=== PATIENT | female | born 1980 | race Caucasian/White ===

== ENCOUNTER 2019-02-26 11:15 | Emergency (ER) | payer BC, MEDICAID ==
[~2019-02-26] VITALS: Ht 157.5 cm; Wt 84.4 kg
[~2019-02-26 11:15] MED LIST: ALBU-136 IH; PRED10TA5 PO
[2019-02-26 11:26] VITALS: BP 123/79
[2019-02-26] MEDS ORDERED: PRON INH (11:32)
[2019-02-26] MEDS ORDERED: ALBU0.0912 IH (11:32)
--- NOTE | 2019-02-26 11:32 | NUR ---
TO BED 3 WITH STEADY GAIT
[2019-02-26] MEDS ORDERED: DEXAMETHASONE 10 MG/ML VIAL IM ONE (11:35)
[2019-02-26] MEDS ORDERED: ALBUTEROL SULFATE/IPRATROPIU 3 ML SOL IH ONE (11:35)
[2019-02-26] MEDS ORDERED: hydrOXYzine HCL 25 MG TAB PO ONE (11:35)
--- NOTE | 2019-02-26 11:35 | NUR ---
BIB . AAO X4 C/O SOB, PRODUCTIVE COUGH WITH YELLOW SPUTUM, BACK PAIN AND CHEST WALL PAIN EXACERBATED BY COUGH. USED NEBULIZER TX AT 2400 AND INHALER AT 0700 WITHOUT RELIEF. +INSP WHEEZING BILATERAL UPPER LUNGS UPON AUSCULTATION. O2 SAT 98% RA, ABLE TO SPEAK IN FULL SENTENCES. SWELLING NOTED TO RIGHT UPPER EYE LID. 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 ER TO EVALUATE PT.
--- NOTE | 2019-02-26 11:48 | NUR ---
RESPIRATORY THERAPIST AT BEDSIDE FOR BREATHING TX ORDERED
[2019-02-26 12:54] LABS: APPEARANCE,URINE SL CLOUDY (CLEAR); BILIRUBIN,URINE NEGATIVE (NEGATIVE); BLOOD, URINE 1+ (NEGATIVE); COLOR,URINE YELLOW (YELLOW); LEUKOCYTE ESTERASE ,URINE NEGATIVE (NEGATIVE); NITRITE, URINE NEGATIVE (NEGATIVE); PH,URINE 5.5 (5.0-9.0); UGLUCOSE NEGATIVE (NEGATIVE)
[2019-02-26 13:22] LABS: RBC,URINE 0-5 /HPF (0-5); WBC,URINE 0-5 /HPF (0-5)
[2019-02-26] MEDS ORDERED: cefTRIAXone 1,000 MG in LIDOCAINE 1% ***ER ONLY *** 2.1 ML IM ONE (13:30)
[2019-02-26 13:39] LABS: BARBITURATE, URINE NEGATIVE ng/ml (NEG <=200); BENZODIAZEPINE, URINE NEGATIVE ng/mL (NEG <=200); CANNABINOID, URINE NEGATIVE ng/mL (NEG <=50); COCAINE, URINE NEGATIVE ng/mL (NEG <=300); OPIATE, URINE NEGATIVE ng/mL (NEG <=2000); PHENCYCLIDINE SCREEN,URINE NEGATIVE ng/mL (NEG <=25)
[2019-02-26] MEDS ORDERED: cefTRIAXone 1,000 MG VIAL ONE (14:01)
[2019-02-26] MEDS ORDERED: LIDOCAINE MPF 1% - 5 mL VIAL 5 ML ONE (14:02)
[2019-02-26 14:17] VITALS: BP 117/75
--- NOTE | 2019-02-26 14:17 | NUR ---
Patient discharged with v/s stable. Written and verbal after care instructions given and explained. Patient alert, oriented and verbalized understanding of instructions. Ambulatory with steady gait. All questions addressed prior to discharge. ID band removed. Patient advised to follow up with PMD. Rx of Azithromycin, Prednisone and Albuterol given. Patient educated on indication of medication including possible reaction and side effects. Opportunity to ask questions provided and answered.
== END 2019-02-26 14:17 | disposition home or self-care (01) ==
LOC: MED 11:15
DX: J45.901 Unspecified asthma with (acute) exacerbation (principal); J32.9 Chronic sinusitis, unspecified; J02.9 Acute pharyngitis, unspecified; Z79.899 Other long term (current) drug therapy; Z88.5 Allergy status to narcotic agent
CPT/HCPCS: 80305; 81001; 81025; 94640; 94760; 96372; 99284; J0696; J1100; J2001; J7620

== ENCOUNTER 2019-03-22 16:08 | Emergency (ER) | payer MEDICAID ==
[~2019-03-22] VITALS: Ht 160 cm; Wt 88.2 kg
[~2019-03-22 16:08] MED LIST changes: +ALBU0.0912 IH; +PRON INH
[2019-03-22 16:14] VITALS: BP 144/80
--- NOTE | 2019-03-22 16:27 | NUR ---
URINE CUP HANDED TO PT FOR SAMPLE
[2019-03-22] MEDS ORDERED: KETOROLAC 60 MG/2 ML VIAL IM ONE (16:55)
--- NOTE | 2019-03-22 17:12 | NUR ---
PT PRESENTS TO ED FOR EVALUATION OF HEADACHE X5 DAYS. PT AAO X4, GCS 15, ABLE TO SPEAK WITH FULL COMPLETE SENTENFES. PUPILS PERRLA 3/3 MM. NOTED RT EYE SWOLLEN WITH ERYTHEMA. RESPIRATIONS EVEN AND UNLABORED, BL LUNG CLEAR. AMBULATORY WITH STEADY GAIT. VSS, NO ACUTE DISTRESS AT THIS TIME. WILL CONTINUE TO MONITOR
[2019-03-22 18:37] VITALS: BP 128/72
--- NOTE | 2019-03-22 18:38 | NUR ---
Patient discharged with v/s stable. Written and verbal after care instructions given and explained. Patient alert, oriented and verbalized understanding of instructions. Ambulatory with steady gait. All questions addressed prior to discharge. ID band removed. Patient advised to follow up with PMD. Rx of Motrin, [place] and zofran given. Patient educated on indication of medication including possible reaction and side effects. Opportunity to ask questions provided and answered.
== END 2019-03-22 18:38 | disposition home or self-care (01) ==
LOC: MED 16:08
DX: R51 Headache (principal); J45.909 Unspecified asthma, uncomplicated; Z79.899 Other long term (current) drug therapy; Z88.5 Allergy status to narcotic agent; Z98.890 Other specified postprocedural states
CPT/HCPCS: 81002; 81025; 96372; 99283; J1885

== ENCOUNTER 2019-06-24 10:15 | Emergency (ER) | payer BC, MEDICAID ==
[~2019-06-24] VITALS: Ht 165.1 cm; Wt 84.4 kg
[2019-06-24 10:20] VITALS: BP 139/94
--- NOTE | 2019-06-24 10:20 | NUR ---
PATIENT AMBULATED TO BED 3.
--- NOTE | 2019-06-24 10:40 | NUR ---
C/O HEADACHE SINCE MONDAY, WORSENING AT NIGHT. PT COMPLAINS SHE CANNOT SLEEP AT NIGHT. PT STATES SHE WAS SEEN HERE [place] FOR SAME S/SX GIVEN MOTRIN AND NORCO BUT HAS NOT TAKEN NORCO AT HOME. PT HAS SWELLING TO RIGHT EYE THAT PT STATES IS AN ON GOING ISSUE AND SEEING SPECIALIST FOR. rates pain 8/10. 2mm brisk perrla. denies any head injury or truama. vss. allergies: morphine HX MIGRAINES, IGG, ASTHMA
--- NOTE | 2019-06-24 10:47 | NUR ---
pt taken to ct via wheelchair.
--- NOTE | 2019-06-24 10:58 | NUR ---
pt returned to ct via wheelchair.
[2019-06-24] MEDS: KETOROLAC 30 MG/ML VIAL IM ONE (11:03)
--- NOTE | 2019-06-24 11:22 | NUR ---
reeval pt pain after medical billing associate: pt rates pain 03/16. prev was 04/16. md ellis aware.
[2019-06-24 11:39] VITALS: BP 139/94
--- NOTE | 2019-06-24 11:41 | NUR ---
Patient discharged with v/s stable. Written and verbal after care instructions given and explained. Patient alert, oriented and verbalized understanding of instructions. Ambulatory with steady gait. All questions addressed prior to discharge. ID band removed. Patient advised to follow up with PMD. Rx of prednisone, and naprosyn given. Patient educated on indication of medication including possible reaction and side effects. Opportunity to ask questions provided and answered.
== END 2019-06-24 11:41 | disposition home or self-care (01) ==
LOC: MED 10:15
DX: R51 Headache (principal); H57.11 Ocular pain, right eye; R11.0 Nausea; J45.909 Unspecified asthma, uncomplicated; Z98.890 Other specified postprocedural states; Z79.899 Other long term (current) drug therapy; Z88.5 Allergy status to narcotic agent
CPT/HCPCS: 70450; 81002; 81025; 96372; 99284; J1885

== ENCOUNTER 2019-09-13 11:47 | Emergency (ER) | payer SELFPAY ==
[~2019-09-13] VITALS: Ht 160 cm; Wt 86.6 kg
[~2019-09-13 11:47] MED LIST changes: -ALBU0.0912 IH; -PRON INH
[2019-09-13 12:23] VITALS: BP 136/58
--- NOTE | 2019-09-13 13:54 | NUR ---
Patient ambulated to bed 6. RN evaluating patient at bedside.
[2019-09-13] MEDS ORDERED: ALBUTEROL SULFATE/IPRATROPIU 3 ML SOL IH ONE (14:35)
[2019-09-13] MEDS ORDERED: methylPREDNISolone SS 125 MG in WATER STERILE 2 ML IV ONE (14:35)
[2019-09-13] MEDS ORDERED: MAG SULF 2000 MG/WATER PREMIX 50 ML IV ONE (14:35)
--- NOTE | 2019-09-13 14:40 | NUR ---
38 y/o F presents to ER c/o right eye pain and swelling and headache. Pain level 8/10, throbbing pressure pain. 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 Per pt she sees double vision, blurry vision, with watery and itchy in right eye. Pt took Naproxyn at midnight with relief. Pt also c/o chest tightness. HOB elevated, bed in lowest position, bed rail up x1. Allergies: Morphine Med Hx: Asthma, and IGG Disease
--- NOTE | 2019-09-13 14:45 | NUR ---
Breathing treatment administered by respiratory therapist at bedside.
[2019-09-13] MEDS ORDERED: methylPREDNISolone SS 125 MG/2 ML VIAL ONE (14:50)
[2019-09-13] MEDS ORDERED: WATER STERILE 10 ML MC ONE (14:50)
--- NOTE | 2019-09-13 15:07 | NUR ---
Xray at bedside
[2019-09-13 16:16] VITALS: BP 136/58
--- NOTE | 2019-09-13 16:16 | NUR ---
Patient discharged by Dr. Murphy with v/s stable. Written and verbal after care instructions given and explained. Patient alert, oriented and verbalized understanding of instructions. Ambulatory with steady gait. All questions addressed prior to discharge. ID band removed. Patient advised to follow up with PMD. Rx of Prednison 20mg was given. Patient educated on indication of medication including possible reaction and side effects. Opportunity to ask questions provided and answered.
== END 2019-09-13 16:16 | disposition home or self-care (01) ==
LOC: MED 11:47
DX: D80.3 Selective deficiency of immunoglobulin G [IgG] subclasses (principal); J45.909 Unspecified asthma, uncomplicated; H05.20 Unspecified exophthalmos; Z79.899 Other long term (current) drug therapy; Z88.5 Allergy status to narcotic agent
CPT/HCPCS: 71045; 94640; 96365; 96375; 99283; J2930; J3475; J7620; Q0092

== ENCOUNTER 2020-01-19 14:03 | Emergency (ER) | payer MEDICAID ==
[~2020-01-19] VITALS: Ht 172.7 cm; Wt 81.6 kg
[2020-01-19 14:30] VITALS: BP 118/63
--- NOTE | 2020-01-19 14:41 | NUR ---
39 Y/O FEMALE BIB SELF S/O RIGHT EYE SWELLING AND PAIN. PATIENT STATES THIS IS A CHRONIC CONDITIION AND RELATES IT TO HER 'IGG CONDITION', THIS EPISODE IN PARTICULAR BEGAN ON MONDAY. EYE SWELLING IS CAUSING DOUBLE VISION, OCCIPITAL HEADACHE, AND SORE THROAT. PT STATES SHE TOOK A MOTRIN THIS MORNING AT 10, BUT PAIN IS STILL 8/10. RIGHT EYE IS VISIBLY PROTRUDING AND SWELLED. RESP EVEN AND UNLABORED VSS. ALLERGIES: MORPHINE
[2020-01-19] MEDS ORDERED: KETOROLAC 60 MG/2 ML VIAL IM ONE (14:55)
[2020-01-19] MEDS ORDERED: methylPREDNISolone SS 125 MG in WATER STERILE 2 ML IM ONE (14:55)
[2020-01-19] MEDS ORDERED: WATER STERILE 10 ML MC ONE (14:55)
[2020-01-19] MEDS ORDERED: methylPREDNISolone SS 125 MG/2 ML VIAL ONE (14:55)
--- NOTE | 2020-01-19 15:24 | NUR ---
Patient discharged with v/s stable. Written and verbal after care instructions given and explained. Patient alert, oriented and verbalized understanding of instructions. Ambulatory with steady gait. All questions addressed prior to discharge. ID band removed. Patient advised to follow up with PMD. Rx of MEDROL, IPRATROPIUM, NAPROXEN given. Patient educated on indication of medication including possible reaction and side effects. Opportunity to ask questions provided and answered.
[2020-01-19 15:25] VITALS: BP 118/63
== END 2020-01-19 15:24 | disposition home or self-care (01) ==
LOC: MED 14:03
DX: H10.11 Acute atopic conjunctivitis, right eye (principal); J45.909 Unspecified asthma, uncomplicated; Z79.899 Other long term (current) drug therapy; Z88.5 Allergy status to narcotic agent
CPT/HCPCS: 96372; 99284; J1885; J2930

== ENCOUNTER 2020-03-06 14:25 | Emergency (ER) | payer MEDICAID ==
[~2020-03-06] VITALS: Ht 160 cm; Wt 91.4 kg
[2020-03-06 14:29] VITALS: BP 143/59
--- NOTE | 2020-03-06 14:35 | NUR ---
PT C/O CHRONIC RIGHT EYE INFLAMATION WITH FLARE-UP 3 DAYS AGO. PT REPORTS HX OF PREVIOUS EPISODES. PT WAS SEEN IN [place] FOR CONTINUITY OF CARE. 6/10 THROBBING PAIN RADIATING TO RT EAR AT THIS TIME. PT PRESENTS WITH INFLAMMED AND BULGED RIGHT EYE WITH DOUBLE VISION. VSS, EUPNIC, A/OX4.
[2020-03-06] MEDS ORDERED: methylPREDNISolone SS 125 MG in WATER STERILE 2 ML IM ONE (14:50)
[2020-03-06] MEDS ORDERED: WATER STERILE 0 ML MC ONE (15:01)
[2020-03-06] MEDS ORDERED: methylPREDNISolone SS 125 MG/2 ML VIAL ONE (15:01)
[2020-03-06 15:10] VITALS: BP 128/51
== END 2020-03-06 15:10 | disposition home or self-care (01) ==
LOC: MED 14:25
DX: H05.221 Edema of right orbit (principal); H10.11 Acute atopic conjunctivitis, right eye; J45.909 Unspecified asthma, uncomplicated; Z79.899 Other long term (current) drug therapy; Z88.5 Allergy status to narcotic agent; Z98.890 Other specified postprocedural states
CPT/HCPCS: 96372; 99283; J2930

== ENCOUNTER 2020-05-22 11:52 | Emergency (ER) | payer MEDICAID ==
[~2020-05-22] VITALS: Ht 160 cm; Wt 92.1 kg
--- NOTE | 2020-05-22 11:56 | NUR ---
Patient ambulated to bed 12. RN is evaluating the patient at bedside.
[2020-05-22 11:57] VITALS: BP 133/74
--- NOTE | 2020-05-22 12:04 | NUR ---
Dr. Chandler is evaluating the patient at bedside.
[2020-05-22] MEDS ORDERED: TOMOMETER 1 DEV DEV MC ONE (12:05)
[2020-05-22] MEDS ORDERED: TETRACAINE HCL/PF 0.5% OPTH 4 ML BTL ONE (12:06)
[2020-05-22] MEDS ORDERED: TETRACAINE HCL/PF 0.5% OPTH 4 ML BTL OP ONE (12:15)
--- NOTE | 2020-05-22 12:18 | NUR ---
39/F c/o right-sided headache and right eye swelling/bulging x 3 days due to inflammatory disease, has occurred in exact presentation in the past. Pt has always been given IM steriod inj, pain med, and tapered steriod dose for discharge med, which works to decreased the swelling/inflammation/pain. No decreased in vision. Pt nad. medhx: IGG deficiency Addendum: 05/22/20 at 1229 by DAYO swelling developing over the past week and pain developing over the past 3 days
[2020-05-22] MEDS ORDERED: methylPREDNISolone SS 125 MG/2 ML VIAL IM STA (12:23)
[2020-05-22] MEDS ORDERED: KETOROLAC 30 MG/ML VIAL IM ONE (12:25)
--- NOTE | 2020-05-22 12:28 | NUR ---
Arpita sanabria in [facility] - 05/22/20 at 1229 by DAYO swelling developing over the past week and pain developing over the past 3 days
[2020-05-22 12:57] VITALS: BP 133/74
== END 2020-05-22 12:57 | disposition home or self-care (01) ==
LOC: MED 11:52
DX: H02.843 Edema of right eye, unspecified eyelid (principal); D80.3 Selective deficiency of immunoglobulin G [IgG] subclasses; J45.909 Unspecified asthma, uncomplicated
CPT/HCPCS: 96372; 99284; J1885; J2930

== ENCOUNTER 2020-07-03 12:47 | Emergency (ER) | payer MEDICAID ==
[~2020-07-03] VITALS: Ht 160 cm; Wt 93.0 kg
[2020-07-03 12:50] VITALS: BP 128/72
[2020-07-03 13:34] LABS: BASOPHILS % (AUTO) 0.4 % (0.0-2.0); EOSINOPHILS # (AUTO) 1.7 K/uL (0-0.4); EOSINOPHILS % (AUTO) 19.5 % (0.0-4.0); HEMATOCRIT 36.5 % (36-48); HEMOGLOBIN 11.7 g/dL (12.0-16.0); LYMPHOCYTES # (AUTO) 1.8 K/uL (2.5-16.5); LYMPHOCYTES % (AUTO) 20.7 % (20.5-51.1); MEAN CORPUSCULAR HEMOGLOBIN 25 pg (27-31); MEAN CORPUSCULAR HGB CONC 32 g/dL (33-37); MEAN CORPUSCULAR VOLUME 76.9 fL (80-94); MONOCYTES # (AUTO) 0.6 K/uL (0.8-1.0); MONOCYTES % (AUTO) 6.6 % (1.7-9.3); NEUTROPHILS # (AUTO) 4.6 K/uL (1.8-7.7); NEUTROPHILS % (AUTO) 52.8 % (42.2-75.2); PLATELET COUNT (AUTO) 368 K/uL (140-450); RED BLOOD CELL COUNT(AUTO) 4.75 MIL/uL (4.20-5.40); RED CELL DISTRIBUTION WIDTH 16.2 % (11.6-13.7); WHITE BLOOD COUNT (AUTO) 8.6 K/uL (4.8-10.8)
[2020-07-03 13:42] LABS: CARBON DIOXIDE 27.7 mmol/L (21-32); CREATININE 0.6 mg/dL (0.6-1.3); POTASSIUM 3.7 mmol/L (3.5-5.1)
[2020-07-03] MEDS: predniSONE 20 MG TAB PO SCH (14:50)
[2020-07-03 15:51] VITALS: BP 115/69
== END 2020-07-03 15:51 | disposition home or self-care (01) ==
LOC: MED 12:47
DX: J45.901 Unspecified asthma with (acute) exacerbation (principal); R07.9 Chest pain, unspecified; Z79.899 Other long term (current) drug therapy
CPT/HCPCS: 36415; 71045; 80048; 84484; 85025; 93005; 99285; J7512; U0003

== ENCOUNTER 2022-01-31 16:23 | Emergency (ER) | payer BC, MEDICAID ==
[~2022-01-31] VITALS: Ht 160 cm; Wt 96.3 kg
[~2022-01-31 16:23] MED LIST changes: +ALBU-118 IH; -ALBU-136 IH
[2022-01-31 16:56] VITALS: BP 135/95
--- NOTE | 2022-01-31 17:00 | NUR ---
PT AMBULATED TO BED 04.
--- NOTE | 2022-01-31 17:00 | NUR ---
41YR OLD FEMALE BIB SELF C/O ASTHMA. PT SPEAKING IN FULL SENTENCES. NO DISTRESS NOTED. 98% RA. RT AT BEDSIDE. MORPHINE ASTHMA AUTO IMMUNE DISORDER
[2022-01-31] MEDS ORDERED: predniSONE 20 MG TAB PO ONE (17:10)
[2022-01-31] MEDS ORDERED: ALBUTEROL SULFATE/IPRATROPIU 3 ML SOL IH ONE (17:10)
[2022-01-31] MEDS ORDERED: ALBUTEROL 0.083% 2.5 MG/3 ML NEBU INH ONE (17:10)
[2022-01-31] MEDS ORDERED: KETOROLAC 60 MG/2 ML VIAL IM ONE (17:45)
[2022-01-31] MEDS ORDERED: PRON INH (18:07)
[2022-01-31] MEDS ORDERED: PRED20TA5 PO (18:07)
[2022-01-31] MEDS ORDERED: IBUP-2213 PO (18:07)
[2022-01-31] MEDS ORDERED: ALBU0.0912 INH (18:07)
[2022-01-31] MEDS ORDERED: predniSONE 20 MG TAB ONE ×2 (18:14→18:16)
[2022-01-31] MEDS ORDERED: CRUSHER, PILL MC ONE (18:16)
[2022-01-31 18:34] VITALS: BP 113/47
--- NOTE | 2022-01-31 18:34 | NUR ---
Patient discharged with v/s stable. Written and verbal after care instructions given and explained. Patient alert, oriented and verbalized understanding of instructions. Ambulatory with steady gait. All questions addressed prior to discharge. ID band removed. Patient advised to follow up with PMD. Rx of ALBUTEROL IBUPROFEN PREDNISONE given. Patient educated on indication of medication including possible reaction and side effects. Opportunity to ask questions provided and answered.
--- NOTE | 2022-01-31 19:02 | NUR ---
Chart checked and completed. The patient's care was reviewed and supervised by Vernell Muro RN.
== END 2022-01-31 18:34 | disposition home or self-care (01) ==
LOC: MED 16:23
DX: J45.901 Unspecified asthma with (acute) exacerbation (principal); Z98.890 Other specified postprocedural states; Z79.899 Other long term (current) drug therapy
CPT/HCPCS: 94640; 96372; 99283; J1885; J7512; J7613

== ENCOUNTER 2022-11-04 10:37 | Emergency (ER) | payer BC, MEDICAID ==
[~2022-11-04] VITALS: Ht 160 cm; Wt 93.9 kg
[~2022-11-04 10:37] MED LIST changes: +ALBU0.0912 INH; +IBUP-2213 PO; +PRED20TA5 PO; +PRON INH
[2022-11-04 10:40] VITALS: BP 138/92
[2022-11-04] MEDS ORDERED: DEXAMETHASONE 4 MG/ML VIAL PO ONE (11:10)
[2022-11-04] MEDS ORDERED: IPRATROPIUM 0.02% 0.5 MG/2.5 ML NEBU INH ONE (11:10)
[2022-11-04] MEDS ORDERED: ALBUTEROL 0.083% 2.5 MG/3 ML NEBU INH ONE (11:10)
[2022-11-04 12:53] LABS: BASOPHILS % (AUTO) 0.1 % (0.0-2.0); EOSINOPHILS % (AUTO) 8.6 % (0.0-4.0); HEMATOCRIT 34.9 % (36-48); LYMPHOCYTES # (AUTO) 1.1 K/uL (2.5-16.5); MEAN CORPUSCULAR HEMOGLOBIN 23 pg (27-31); MEAN CORPUSCULAR HGB CONC 32 g/dL (33-37); MONOCYTES # (AUTO) 0.7 K/uL (0.8-1.0); MONOCYTES % (AUTO) 6.4 % (1.7-9.3); NEUTROPHILS # (AUTO) 8.4 K/uL (1.8-7.7); NEUTROPHILS % (AUTO) 74.9 % (42.2-75.2); PLATELET COUNT (AUTO) 332 K/uL (140-450); RED BLOOD CELL COUNT(AUTO) 4.85 MIL/uL (4.20-5.40); RED CELL DISTRIBUTION WIDTH 16.6 % (11.6-13.7); WHITE BLOOD COUNT (AUTO) 11.2 K/uL (4.8-10.8)
[2022-11-04 13:09] LABS: ALBUMIN 3.4 g/dL (3.4-5.0); ANION GAP 12.7 (8-16); ASPARTATE AMINOTRANSFERASE 18 U/L (15-37); CARBON DIOXIDE 24.5 mmol/L (21-32); CHLORIDE 104 mmol/L (98-107); CREATININE 0.7 mg/dL (0.6-1.3); GFR ARICAN-AMERICAN 117 mL/min (>90); GLUCOSE 129 mg/dL (74-106); POTASSIUM 4.2 mmol/L (3.5-5.1); SODIUM SERUM 137 mmol/L (136-145); TOTAL BILIRUBIN 0.7 mg/dL (0.0-1.0); UREA NITROGEN, BLOOD 8 mg/dL (7-18)
[2022-11-04] MEDS ORDERED: KETOROLAC 15 MG/ML VIAL ONE (14:40)
[2022-11-04] MEDS ORDERED: KETOROLAC 15 MG/ML VIAL IVP ONE (14:40)
--- NOTE | 2022-11-04 15:47 | NUR ---
IV removed, catheter intact and site benign. Applied folded 4x4 gauze and tape to stop bleeding.
[2022-11-04 15:48] VITALS: BP 124/76
--- NOTE | 2022-11-04 15:48 | NUR ---
Patient discharged with v/s stable. Written and verbal after care instructions given and explained. Patient verbalized understanding. Ambulatory with steady gait. All questions addressed prior to discharge. Advised to follow up with PMD.
== END 2022-11-04 15:48 | disposition home or self-care (01) ==
LOC: MED 10:37
DX: J45.901 Unspecified asthma with (acute) exacerbation (principal); R07.9 Chest pain, unspecified; Z79.899 Other long term (current) drug therapy
CPT/HCPCS: 36415; 71045; 71275; 80053; 81025; 84484; 85025; 85379; 93005; 94640; 96374; 99285; J1100; J1885; J7613; J7644; Q0092; Q9967